=== PATIENT | female | born 1950 | race Caucasian/White ===

== ENCOUNTER → 2016-08-26 | Outpatient (CLI) | payer OTHER ==
[~2016-08-26] MED LIST: ASPI81TA28 PO; ATEN50TA8 PO; BIOF500T PO; CALC500C70 PO; CLOP1TAB54 PO; CRAN1TAB4 PO; GLC/500 PO; LISI-725 PO; METO-217 PO; MULT-1018 PO; MULT-506 PO; NTRGSL/4 SL; OMEG10007 PO; PLAVIX75 PO; PRLSR20 PO; ROSU20TA PO; VITA1TAB6 PO
[2016-08-26 13:01] LABS: BASO % 0.4 %; BASO ABS # 0.02 K/uL (0-0.2); COMPLETE YES; EOS % 2.3 %; HEMATOCRIT 38.8 % (37-47); IG% 0.2 %; LYMPH % 36.3 %; LYMPH ABS # 1.88 K/uL (1.2-3.4); MEAN CELL VOLUME 83.8 fL (80-100); MEAN CORPUSCULAR HEMOGLOBIN 28.3 pg (25-34); MEAN CORPUSCULAR HGB CONC 33.8 g/dl (32-36); MEAN PLATELET VOLUME 9.7 fL (7.4-10.4); MONO % 8.3 %; NEUT % 52.5 %; PLATELET COUNT 242 K/uL (130-400); RED BLOOD COUNT 4.63 M/uL (4.2-5.4); WHITE BLOOD COUNT 5.18 K/uL (4.8-10.8)
[2016-08-26 13:09] LABS: PARTIAL THROMBOPLASTIN RATIO 0.9; PROTHROMBIN TIME (PATIENT) 10.3 SECONDS (9.0-12.0)
[2016-08-26 13:32] LABS: BLOOD UREA NITROGEN 19 mg/dl (7-18); BUN/CREATININE RATIO 26.6 (10-20); CALCIUM 9.5 mg/dl (8.5-10.1); CARBON DIOXIDE 22 mmol/L (21-32); CHLORIDE 112 mmol/L (98-107); CREATININE 0.73 mg/dl (0.60-1.20); GLUCOSE 136 mg/dl (70-99); POTASSIUM 3.9 mmol/L (3.5-5.1); SODIUM 145 mmol/L (136-145)
== END | disposition home or self-care (01) ==
LOC: C.LAB1850 11:36
PROVIDERS: ATTEND Internal Medicine
DX: I20.8 Other forms of angina pectoris (principal)

== ENCOUNTER → 2016-08-26 | Outpatient (CLI) | payer OTHER ==
--- NOTE | 2016-08-26 14:16 | MAMMOGRAPHY REPORT ---
BILATERAL DIGITAL SCREENING MAMMOGRAM WITH CAD: 08/26/2016 CLINICAL HISTORY: Routine screening. Patient has no complaints. TECHNIQUE: Current study was also evaluated with a Computer Aided Detection (CAD) system. Bilatera l CC and MLO views were obtained. COMPARISON: Comparison is made to exams dated: 06/18/2015 mammogram, 06/12/2012 mammogram, 06/09/2011 mammogram - [facility], and 03/27/2009. BREAST COMPOSITION: There are scattered areas of fibroglandular density in both breasts. FINDINGS: No suspicious masses, calcifications, or areas of architectural distortion are noted in e ither breast. There has been no significant interval change compared to prior exams. Fluctuating sm all benign-appearing masses are again noted scattered throughout both breasts, which are considered benign given the multiplicity and bilaterality and likely represent cysts. A biopsy marker clip is again noted in the right upper inner quadrant. IMPRESSION: ACR BI-RADS CATEGORY 2: BENIGN There is no mammographic evidence of malignancy. A 1 year screening mammogram is recommended. The p atient will receive written notification of the results. Approximately 10% of breast cancers are not detected with mammography. A negative mammographic repor t should not delay biopsy if a clinically suggestive mass is present. Audra Quispe M.D. ah/:08/26/2016 07:50:57 Commercial Estimator: Lolis MAN(Hoang)(M), [facility] letter sent: Normal 1/2 BI-RADS Code: ACR BI-RADS Category 2: Benign
== END | disposition home or self-care (01) ==
LOC: C.MAMM 07:24
PROVIDERS: ATTEND Nurse Practitioner Family
DX: Z12.31 Encounter for screening mammogram for malignant neoplasm of breast (principal); I20.8 Other forms of angina pectoris

== ENCOUNTER → 2016-09-06 | Outpatient (CLI) | payer OTHER | END | disposition home or self-care (01) | LOC: C.LABPVFM 07:31 | PROVIDERS: ATTEND Nurse Practitioner | DX: N39.0 Urinary tract infection, site not specified (principal) ==

== ENCOUNTER → 2016-09-14 | Day surgery (SDC) | payer OTHER ==
[~2016-09-14] VITALS: Ht 162.6 cm; Wt 79.0 kg
[~2016-09-14] MED LIST changes: +ACETAMINOPHEN 325 MG TAB ONE; +ADENOSINE IV SOLN 3 MG/ML 20 ML VIAL IV ONE; +FENTANYL CITRATE INJ 50 MCG/1 ML 2 ML VIAL ONE; +HEPARIN SOD (PORCINE) 1000 UNIT/ML 10 ML VIAL ONE; +MIDAZOLAM HCL 1 MG/ML 2ML VIAL ONE; +NITROGLYCERIN/D5W 100MCG/ML 20ML SYR ONE; +NURSING VERBAL MED ORDER ONE; +NiCARDipine HCL INJ 2.5 MG/ML 10 ML AMP ONE
[2016-09-14 07:15] VITALS: BP 179/78; PULSE 65; TEMP 36.4; O2SAT 97; Ht 162.6 cm; Wt 79.0 kg
--- NOTE | 2016-09-14 10:48 | Procedure Note ---
Pre-Mod Sedation Assessment General Date of Moderate Sedation: Sep 14, 2016. Vital Signs: Vital Signs Past 12 Hours Date Time Temp Pulse Resp B/P Pulse Ox O2 Delivery O2 Flow Rate FiO2 09/14/16 10:45 72 18 164/75 97 Room Air 09/14/16 10:35 Room Air 09/14/16 10:30 66 16 163/86 95 Room Air 09/14/16 07:15 36.4 65 18 179/78 97 Room Air Review Cardiovascular: regular rate, rhythm, no edema, no gallop Abdomen: normal bowel sounds, non tender, soft Lungs: lungs clear, + decreased breath sounds Airway Class: II Pre-Sedation Airway Assessment Oral Cavity: Chipped Teeth, Capped Teeth Able to Visualize Vocal Cords: No Short Thick Neck: No Hx of Sleep Apnea: Yes Smoking Status: Never Smoker Mallampati Classification: Class III ASA Classification: Class II Procedure Planning Contraindications-for Mod Sed: None Yes Notes The planned sedation has been discussed with the patient and consent obtained. I have identified the patient, determined the appropriateness of sedation and have assessed the patient immediately prior to the procedure. All medicine(s) and interventions are by my order.
--- NOTE | 2016-09-14 10:49 | Procedure Note ---
Post-Mod Sedation Assessment General Date of Moderate Sedation Sep 14, 2016. Vital Signs: Vital Signs Past 12 Hours Date Time Temp Pulse Resp B/P Pulse Ox O2 Delivery O2 Flow Rate FiO2 09/14/16 10:45 72 18 164/75 97 Room Air 09/14/16 10:35 Room Air 09/14/16 10:30 66 16 163/86 95 Room Air 09/14/16 07:15 36.4 65 18 179/78 97 Room Air Review - Discharge Criteria Vital Signs Stable: Yes Alert/Oriented/Conversant: Yes Returned to Baseline Mental St: Yes Nausea Absent/Minimal: Yes Pain/Discomfort/Absent/Minimal: Yes Normal/Baseline Respirations: Yes Active Bleeding?: No Pt Received D/C Instructions: Yes Prescriptions Given: Transmitted Specific Proced. D/C Criteria Distal Pulses Present (Cardiac: Yes Groin site assessed-Card Cath: No Voided Prior To Discharge: Yes Discharged Patients Adult Escort/Transportation: Yes
--- NOTE | 2016-09-14 11:07 | Discharge Instructions ---
Discharge Instructions Procedure Procedure Date: Sep 14, 2016. Reason for Visit: Exertional Angina *Dr Burns To Do*. Discharge Discharge Date: Sep 14, 2016. Discharge Diagnosis: Multivessel coronary artery disease Last Recorded Wt (Kilograms): 79 Medications Stopped Medication(s): Hold Plavix Hold Metformin for 48 hours post procedure Anesthesia Post Anesthesia Instructions: If you have had General Anesthesia or IV Sedation: * Do not drive today. * Resume driving when surgeon permits. * Do not make important decisions or sign legal documents today. * Call surgeon for: 1. Temperature elevations greater than 101 degrees F. 2. Uncontrollable pain. 3. Excessive bleeding. 4. Persistent nausea and vomiting. 5. Medication intolerance (nausea, vomiting or rash). * For nausea and vomiting use only clear liquids such as: tea, soda, bouillon until nausea subsides, then gradually increase diet as tolerated. * If you have any concerns or questions, call your surgeon's office. If physician is unavailable and it is an emergency, call 911 or go to the nearest emergency room. Instructions Activity Recommendations: limitations as noted below Recommended Home Diet: resume previous diet, low cholesterol, diabetes diet Allergies: Coded Allergies: No Known Allergies (Verified , 02/11/05) Provider Instructions ACTIVITY RECOMMENDATIONS: It is common to feel weak and fatigue for a few days. * Do not drive or operate any motorized equipment for the next three days. * Limit stair usage (2 or 3 trips a day only) for the next three days. * Do not lift anything heavier than 10 pounds for the next three days. * Do not engage in vigorous exercise or any sports until seen by cardiac surgery * You may shower the day after your procedure, but do not immerse the area for three days. Cleanse the site gently with soap and water. SPECIAL CARE INSTRUCTIONS: * You may replace the pressure dressing or band-aid the morning after the procedure. * After your procedure, it is normal to have a small bruise or small lump at the site. Examine your site daily for any change in the bruise or lump, redness, swelling, drainage or numbness. Notify your doctor if any change. BLEEDING: * If there is a small amount of bleeding at the site, lie down and apply firm pressure with a clean cloth for ten minutes. When the bleeding stops, lie quietly keeping the procedure limb straight for six hours. Notify your doctor as soon as possible. * If the bleeding does not stop after ten minutes or if there is a large amount of bleeding or spurting, call 911 immediately. Continue to lie down and hold firm pressure until help arrives. SKIN IRRITATION: * You may experience some redness and/or swelling in the area where radiation was administered. If any skin irritation occurs, please contact your family physician. FOLLOW UP VISIT: Keep any scheduled doctor appointments. Follow Up Follow-up with: Follow-up with Cardiac surgery at [facility] Recommendations: Call your doctor if: * Temperature above 101 degrees * Pain not relieved by pain medicine ordered * There is increased drainage or redness from any incision * You have any unanswered questions or concerns. Your Doctors Instructions noted above were prepared by provider Nahid Burns. Patient Signature Section: Patient Instructions Signature Page Candace Mendez Patient (or Guardian) Signature/Date: I have read and understand the instructions given to me by my caregivers. Caregiver/RN/Doctor Signature/Date: The above-named patient and/or guardian has received patient instructions on this date. + Original Patient Signature Page (only) stays with chart. Please make copy for patient.
--- NOTE | 2016-09-14 11:21 | Cardiac Catheterization ---
Procedure Note Procedure Date Sep 14, 2016. Pre-Procedure Diagnosis Angina AUC Score 7 Post-Procedure Diagnosis Severe CAD, Normal Intracardiac Pressures Procedure(s) Performed Coronary Angiography, Left Heart Cath, Fractional Flow [place] Control Panel Builder Dr. Burns Poultry Buyer(s) Douglas Estimated Blood Loss 24 Medication(s) Fentanyl, Heparin, Nitroglycerin, Versed, Lidocaine 1%, Adenosine Summary of Findings Indication: Progressive angina Access: 6Fr slender right radial artery Catheters: [place], JL3.5 Guide Findings: LM - Mildly calcified, angiographically normal LAD - 40% ostial stenosis, mildly calcified, diffuse moderate proximal disease, completely occluded in the mid segment. Distal LAD is a small vessel that does not reach apex and fills retrograde via right to left collaterals. High, moderate caliber 1st diagonal, 80% ostial stenosis. Circumflex - small, non-dominant vessel, 40-50% ostial stenosis, 40-50% focal mid segment disease before take-off of terminal OM3 RCA - Dominant, large caliber vessel, 50-60% focal stenosis at origin of mid segment. R-PDA wraps around apex and has an 80-90% proximal stenosis. Moderate sized R-PLB without significant disease. LVEDP - 15 FFR - Mid circumflex - 0.93 1st diagonal iFR 0.76 Arterial Closure: TR Band Summary: 1. Severe multivessel coronary artery disease - 90% proximal R-PDA - Occluded small mid LAD fills via right to left collaterals - 80% ostial 1st diagonal (iFR 0.76) 2. Normal intracardiac filling pressures Recommendations: Refer to Cardiac surgery at [facility] for consideration of CABG In interim continue ASA, beta-jimenez, TORRES, statin Will hold Plavix Obtain TTE today Hemodynamics Rest Ao: 128/70/95 Final Ao: 163/63/102 LV: 185/15 Recommendations CABG Specimens None Radiation Exposure (mGy) 1512 Contrast (mls) 105 Fluids (cc crystalloids) 100 Drains none Anesthesia moderate Procedural Complication(s) None Disposition Provider Enrollment Specialist Holding/Recovery ACC Data Cardiac Status Clinical evaluation leading to the procedure CAD Presntation: Stable angina Anginal Classification: CCS III Heart Failure: No, NYHA Class: CCS I Cardiogenic Shock w/in 24Hrs: No Cardiac Arrest w/in 24Hrs: No Imaging studies past 6 months: No Stress studies past 6 months: No Standard Exercise Stress Test: No Stress Echocardiogram: No Stress Testing w/SPECT MPI: No Cardiac CTA: No Coronary Anatomy Dominant: Right Left Main (% Stenosis): Normal LAD (% Stenosis): Ostial (40), Mid (100) D1 (% Stenosis): Ostial (80) Circumflex (% Stenosis): Ostial (50), Mid (50) RCA (% Stenosis): Mid (50) R PDA (% Stenosis): Proximal (90) Diagnostic Physician's Name: Lexx Burns MD Status: Elective Closure Device Percutaneous Entry Location: Radial Closure Device: Radial Band Recommendations: CABG Intraprocedure Events Significant Dissection: No
[2016-09-14 13:24] VITALS: BP 150/70; PULSE 74; O2SAT 97
--- NOTE | 2016-09-14 13:41 | ECHOCARDIOGRAM REPORT ---
*NOTICE TO RECEIVING LIBERTARIAN AGENCY This information is strictly Confidential and protected under [place] law. [place] law prohibits you from making any further disclosure of this information unless further disclosure is expressly permitted by the written consent of the person to whom it pertains or is authorized by law. A general authorization for the release of medical or other information is not sufficient for this purpose. Hospital accepts no responsibility if the information is made available to any other person, INCLUDING THE PATIENT. Interpretation Summary * Name: ALINA KINGSTON Study Date: 09/14/2016 01:16 PM BP: 161/58 mmHg * Patient Location: C.CATH HR: 64 * : 1950 (M/d/yyyy) Gender: Female Height: 64 in * Age: 66 yrs Ethnicity: CA Weight: 174 lb * Ordering Physician: MD Lexx Burns MD * Referring Physician: Lexx Burns * Performed By: Zoila Martin * * Reason For Study: ISCHEMIA CARDIOMYOPATHY * BSA: 1.8 m2 * -- Conclusions -- * Left ventricular systolic function is normal. * No regional wall motion abnormalities noted. * Ejection Fraction = 60-65%. * There is mild concentric left ventricular hypertrophy. * Grade I diastolic dysfunction, (abnormal relaxation pattern). * No significant valvular pathology. Procedure Details * A complete two-dimensional transthoracic echocardiogram was performed (2D, M-mode, Doppler and color flow Doppler). * A contrast injection of Definity was performed to improve assessment of LV function. * Contrast was injected into an intravenous site in the left arm. * One vial of Definity ultrasound contrast was diluted in normal saline to a total volume of 10 ml. A total of '2' ml of solution was administered during imaging. * Lot # [id number] of Definity utilized for procedure. * Expiration date 08/25. * The attending nurse who injected the contrast agent was ELIZABETH MOON RN. Left Ventricle * The left ventricle is normal in size. * There is mild concentric left ventricular hypertrophy. * Ejection Fraction = 60-65%. * Left ventricular systolic function is normal. * No regional wall motion abnormalities noted. Right Ventricle * The right ventricle is grossly normal size. * The right ventricular systolic function is normal as assessed by tricuspid annular plane systolic excursion (TAPSE) (normal >1.5 cm). Atria * The left atrial size is normal. * Right atrium not well visualized. * There is no evidence of atrial septal defect, but resolution does not allow assessment for a patent foramen ovale. Mitral Valve * The mitral valve is grossly normal. * There is no mitral valve stenosis. * Significant mitral regurgitation is absent. Tricuspid Valve * The tricuspid valve is not well visualized, but is grossly normal. * There is no tricuspid stenosis. * Significant tricuspid regurgitation is absent. Aortic Valve * The aortic valve is normal in structure and function. * No hemodynamically significant valvular aortic stenosis. * There is no significant aortic regurgitation. Pulmonic Valve * The pulmonary valve is not well seen, but the Doppler examination is normal without significant regurgitation or stenosis. * Trace pulmonic valvular regurgitation. Great Vessels * The aortic root is normal size. Pericardium/Pleural * There is no pericardial effusion. Great Vessels * Normal inferior vena cava size and collapsability with sniff indicates a normal right atrial pressure of 3 mmHg Left Ventricular Diastolic Function * Grade I diastolic dysfunction, (abnormal relaxation pattern). MMode 2D Measurements and Calculations IVSd 1.3 cm IVSs 1.8 cm LVIDd 3.9 cm LVIDs 2.3 cm LVPWd 0.68 cm LVPWs 1.2 cm IVS/LVPW 1.9 FS 41.1 % EDV(Teich) 67.7 ml ESV(Teich) 18.6 ml EF(Teich) 72.5 % EDV(cubed) 61.4 ml ESV(cubed) 12.6 ml EF(cubed) 79.5 % % IVS thick 35.5 % % LVPW thick 70.5 % LV mass(C)d 123.3 grams LV mass(C)dI 66.9 grams/m\S\2 LV mass(C)s 111.1 grams LV mass(C)sI 60.3 grams/m\S\2 SV(Teich) 49.1 ml SI(Teich) 26.6 ml/m\S\2 SV(cubed) 48.8 ml SI(cubed) 26.5 ml/m\S\2 ACS 1.3 cm asc Aorta Diam 3.1 cm LVOT diam 1.9 cm LVOT area 2.9 cm\S\2 LVAd ap4 31.3 cm\S\2 LVLd ap4 7.8 cm EDV(MOD-sp4) 104.1 ml EDV(sp4-el) 107.1 ml LVAs ap4 17.3 cm\S\2 LVLs ap4 6.6 cm ESV(MOD-sp4) 38.5 ml ESV(sp4-el) 38.4 ml EF(MOD-sp4) 63.0 % EF(sp4-el) 64.1 % LVAd ap2 25.3 cm\S\2 LVLd ap2 6.9 cm EDV(MOD-sp2) 75.3 ml EDV(sp2-el) 78.6 ml LVAs ap2 14.7 cm\S\2 LVLs ap2 6.8 cm ESV(MOD-sp2) 27.3 ml ESV(sp2-el) 26.8 ml EF(MOD-sp2) 63.8 % EF(sp2-el) 65.9 % LVLd %diff -12.34 % EDV(MOD-bp) 93.4 ml LVLs %diff 3.1 % ESV(MOD-bp) 31.6 ml EF(MOD-bp) 66.1 % SV(MOD-sp4) 65.6 ml SI(MOD-sp4) 35.6 ml/m\S\2 SV(MOD-sp2) 48.0 ml SI(MOD-sp2) 26.1 ml/m\S\2 SV(MOD-bp) 61.8 ml SI(MOD-bp) 33.5 ml/m\S\2 SV(sp4-el) 68.7 ml SI(sp4-el) 37.3 ml/m\S\2 SV(sp2-el) 51.8 ml SI(sp2-el) 28.1 ml/m\S\2 Doppler Measurements and Calculations MV E max gloria 78.7 cm/sec MV A max gloria 76.0 cm/sec MV E/A 1.0 MV dec time 0.18 sec Ao V2 max 114.3 cm/sec Ao max PG 5.2 mmHg Ao max PG (full) 3.0 mmHg CHAS(V,A) 1.9 cm\S\2 CHAS(V,D) 1.9 cm\S\2 LV V1 max PG 2.3 mmHg LV V1 mean PG 1.1 mmHg LV V1 max 75.3 cm/sec LV V1 mean 48.1 cm/sec LV V1 VTI 17.8 cm SV(LVOT) 52.2 ml SI(LVOT) 28.3 ml/m\S\2 PA V2 max 85.2 cm/sec PA max PG 2.9 mmHg TR max gloria 256.2 cm/sec
== END | disposition home or self-care (01) ==
LOC: C.CATH 06:57
PROVIDERS: ATTEND Internal Medicine Interventional Cardiology
DX: I25.119 Atherosclerotic heart disease of native coronary artery with unspecified angina pectoris (principal); I10 Essential (primary) hypertension; E78.5 Hyperlipidemia, unspecified; E11.9 Type 2 diabetes mellitus without complications; M79.1 Myalgia; M17.9 Osteoarthritis of knee, unspecified; J45.909 Unspecified asthma, uncomplicated; Z79.82 Long term (current) use of aspirin

== ENCOUNTER → 2016-10-29 | Outpatient (CLI) | payer OTHER ==
[~2016-10-29] MED LIST changes: -ACETAMINOPHEN 325 MG TAB ONE; -ADENOSINE IV SOLN 3 MG/ML 20 ML VIAL IV ONE; -ATEN50TA8 PO; -CLOP1TAB54 PO; -CRAN1TAB4 PO; -FENTANYL CITRATE INJ 50 MCG/1 ML 2 ML VIAL ONE; -HEPARIN SOD (PORCINE) 1000 UNIT/ML 10 ML VIAL ONE; -MIDAZOLAM HCL 1 MG/ML 2ML VIAL ONE; -NITROGLYCERIN/D5W 100MCG/ML 20ML SYR ONE; -NURSING VERBAL MED ORDER ONE; -NiCARDipine HCL INJ 2.5 MG/ML 10 ML AMP ONE
[2016-10-29 17:23] LABS: BASO ABS # 0.07 K/uL (0-0.2); COMPLETE YES; EOS % 4.9 %; HEMATOCRIT 34.3 % (37-47); IG% 0.1 %; LYMPH % 30.5 %; LYMPH ABS # 2.07 K/uL (1.2-3.4); MEAN CELL VOLUME 86.4 fL (80-100); MEAN CORPUSCULAR HGB CONC 32.4 g/dl (32-36); MEAN PLATELET VOLUME 8.8 fL (7.4-10.4); NEUT % 55.5 %; PLATELET COUNT 459 K/uL (130-400); RED BLOOD COUNT 3.97 M/uL (4.2-5.4); WHITE BLOOD COUNT 6.79 K/uL (4.8-10.8)
[2016-10-29 17:32] LABS: TOTAL IRON BINDING CAPACITY 350 mcg/dl (250-450)
== END | disposition home or self-care (01) ==
LOC: C.LABPVFM 13:51
PROVIDERS: ATTEND Nurse Practitioner Family
DX: D64.9 Anemia, unspecified (principal); R30.0 Dysuria

== ENCOUNTER → 2017-03-15 | Outpatient (CLI) | payer OTHER ==
[~2017-03-15] MED LIST changes: -BIOF500T PO; -LISI-725 PO
[2017-03-15 14:09] LABS: ALT/SGPT 44 U/L (12-78); AST/SGOT 33 U/L (15-37); CHOLESTEROL 162 mg/dl (0-200); CHOLESTEROL/HDL RATIO 2.7; HDL CHOLESTEROL 61 mg/dl; TRIGLYCERIDES 211 mg/dl (0-150); VERY LOW DENSITY LIPOPROT CALC 42 mg/dl
== END | disposition home or self-care (01) ==
LOC: C.LABPVFM 08:34
PROVIDERS: ATTEND Nurse Practitioner Family
DX: I25.10 Atherosclerotic heart disease of native coronary artery without angina pectoris (principal)

== ENCOUNTER → 2017-03-18 | Outpatient (CLI) | payer OTHER ==
[2017-03-18 13:44] LABS: ESTIMATED AVERAGE GLUCOSE 157 mg/dl; HA1C FLAG Normal (Normal)
[2017-03-18 13:48] LABS: BLOOD UREA NITROGEN 20 mg/dl (7-18); BUN/CREATININE RATIO 22.3 (10-20); CALCIUM 9.7 mg/dl (8.5-10.1); CARBON DIOXIDE 27 mmol/L (21-32); CHLORIDE 108 mmol/L (98-107); GLUCOSE 132 mg/dl (70-99); POTASSIUM 4.1 mmol/L (3.5-5.1); SODIUM 143 mmol/L (136-145)
== END | disposition home or self-care (01) ==
LOC: C.LABPVFM 07:48
PROVIDERS: ATTEND Nurse Practitioner Family
DX: M79.1 Myalgia (principal); E11.9 Type 2 diabetes mellitus without complications

== ENCOUNTER → 2017-08-18 | Outpatient (CLI) | payer OTHER ==
[2017-08-18 12:42] LABS: HEMATOCRIT 41.3 % (37-47); HEMOGLOBIN 13.1 g/dL (12.0-16.0); MEAN CELL VOLUME 86.2 fL (80-100); MEAN CORPUSCULAR HEMOGLOBIN 27.3 pg (25-34); MEAN CORPUSCULAR HGB CONC 31.7 g/dl (32-36); MEAN PLATELET VOLUME 9.7 fL (7.4-10.4); PLATELET COUNT 250 K/uL (130-400); RED CELL DISTRIBUTION WIDTH CV 16.1 % (11.5-14.5); RED CELL DISTRIBUTION WIDTH SD 50.8 fL (36.4-46.3); WHITE BLOOD COUNT 5.24 K/uL (4.8-10.8)
[2017-08-18 12:50] LABS: HEMOGLOBIN A1C 6.8 % (4.5-5.6)
[2017-08-18 13:16] LABS: BLOOD UREA NITROGEN 18 mg/dl (7-18); CALCIUM 9.1 mg/dl (8.5-10.1); CARBON DIOXIDE 26 mmol/L (21-32); CHOLESTEROL 154 mg/dl (0-200); CREATININE 0.77 mg/dl (0.60-1.20); GLUCOSE 112 mg/dl (70-99); POTASSIUM 3.8 mmol/L (3.5-5.1); SODIUM 142 mmol/L (136-145)
[2017-08-18 13:19] LABS: LDL CHOLESTEROL CALCULATED 52 mg/dl
== END | disposition home or self-care (01) ==
LOC: C.LABPVFM 08:56
PROVIDERS: ATTEND Nurse Practitioner Family
DX: D64.9 Anemia, unspecified (principal); E11.9 Type 2 diabetes mellitus without complications; I10 Essential (primary) hypertension; E78.5 Hyperlipidemia, unspecified; M25.50 Pain in unspecified joint

== ENCOUNTER → 2017-11-10 | Outpatient (CLI) | payer OTHER ==
--- NOTE | 2017-11-10 14:44 | MAMMOGRAPHY REPORT ---
BILATERAL DIGITAL SCREENING MAMMOGRAM TOMOSYNTHESIS WITH CAD: 11/10/2017 CLINICAL HISTORY: Routine screening. The patient has no current complaints. TECHNIQUE: Breast tomosynthesis in addition to standard 2D mammography was performed. Current study was also evaluated with a Computer Aided Detection (CAD) system. COMPARISON: Comparison is made to exams dated: 08/26/2016 mammogram, 06/18/2015 mammogram, 06/12/2012 mammogram, 06/09/2011 mammogram - [facility], 03/27/2009, and 04/02/2008. BREAST COMPOSITION: There are scattered areas of fibroglandular density in both breasts. FINDINGS: No suspicious masses, calcifications, or areas of architectural distortion are noted in ei ther breast. There has been no significant interval change compared to prior exams. Small bilateral benign-appearing masses are not significantly changed. A biopsy marker clip is again noted within th e right breast. IMPRESSION: ACR BI-RADS CATEGORY 2: BENIGN There is no mammographic evidence of malignancy. A 1 year screening mammogram is recommended. The pa tient will receive written notification of the results. Approximately 10% of breast cancers are not detected with mammography. A negative mammographic report should not delay biopsy if a clinically suggestive mass is present. Audra Quispe M.D. ah/:11/10/2017 07:42:06 Unleavened Dough Mixer: Yumiko MAN(Hoang)(M), [facility] letter sent: Normal 1/2 BI-RADS Code: ACR BI-RADS Category 2: Benign
== END | disposition home or self-care (01) ==
LOC: C.MAMM 07:18
PROVIDERS: ATTEND Nurse Practitioner Family
DX: Z12.31 Encounter for screening mammogram for malignant neoplasm of breast (principal)

== ENCOUNTER → 2017-12-27 | Outpatient (CLI) | payer OTHER ==
[~2017-12-27] MED LIST changes: +ATV5 PO; +CMD5 PO; +IMDSR30 PO; -NTRGSL/4 SL; -VITA1TAB6 PO
== END | disposition home or self-care (01) ==
LOC: C.LABPVFM 11:05
PROVIDERS: ATTEND Internal Medicine
DX: I24.0 Acute coronary thrombosis not resulting in myocardial infarction (principal)

== ENCOUNTER → 2018-02-28 | Outpatient (CLI) | payer OTHER | END | disposition home or self-care (01) | LOC: C.LABPVFM 16:28 | PROVIDERS: ATTEND Family Medicine | DX: R39.9 Unspecified symptoms and signs involving the genitourinary system (principal) ==

== ENCOUNTER → 2018-03-31 | Outpatient (CLI) | payer OTHER ==
[2018-03-31 12:56] LABS: BLOOD UREA NITROGEN 10 mg/dl (7-18); CALCIUM 8.7 mg/dl (8.5-10.1); CARBON DIOXIDE 25 mmol/L (21-32); CHOLESTEROL 173 mg/dl (0-200); CREATININE 0.79 mg/dl (0.60-1.20); GLUCOSE 130 mg/dl (70-99); LDL CHOLESTEROL CALCULATED 52 mg/dl; POTASSIUM 4.1 mmol/L (3.5-5.1); SODIUM 141 mmol/L (136-145)
[2018-03-31 12:58] LABS: HEMOGLOBIN A1C 7.6 % (4.5-5.6)
== END | disposition home or self-care (01) ==
LOC: C.LABPVFM 08:22
PROVIDERS: ATTEND Nurse Practitioner
DX: E11.9 Type 2 diabetes mellitus without complications (principal); E78.5 Hyperlipidemia, unspecified; I10 Essential (primary) hypertension